=== PATIENT | female | born 1975 | race Caucasian/White ===

== ENCOUNTER 2022-05-19 19:03 | Emergency (ER) | payer OTHER ==
[~2022-05-19] VITALS: Ht 165.1 cm; Wt 74.8 kg
[2022-05-19] MEDS ORDERED: MACRODANTIN100 M1 PO (19:18)
== END 2022-05-20 01:28 | disposition home or self-care (01) ==
LOC: ER 19:03
DX: N23 Unspecified renal colic (principal); Z88.0 Allergy status to penicillin